=== PATIENT | male | born 1985 | race Two or more races ===

== ENCOUNTER 2021-05-05 05:51 | Emergency (ER) | payer SELFPAY ==
[~2021-05-05] VITALS: Ht 172.7 cm; Wt 72.6 kg
--- NOTE | 2021-05-05 05:55 | NUR ---
PT BIBRA C/O ALCOHOL INTOXICATION. PER EMS, FAMILY CALLED [id number] PT WAS IN THE BUSHES SCREAMING. MD AT BEDSIDE. PT REFUSING TO ANSWER QUESTIONS, ONLY REPEATS " FATHER, SON, AND [employer]". PT ATTACHED TO MONITOR AND POX. PT GIVEN BLANKET AND CALL LIGHT WITHIN REACH
[2021-05-05] MEDS ORDERED: HALOPERIDOL LACTATE INJ 5 MG/ML VIAL ONE (05:56)
[2021-05-05] MEDS ORDERED: LORAZEPAM INJ 2 MG/ML VIAL ONE (05:57)
--- NOTE | 2021-05-05 05:57 | NUR ---
VERBAL ORDER 5MG HALDOL AND 1MG ATIVAN IM
[2021-05-05] MEDS ORDERED: HALOPERIDOL LACTATE INJ 5 MG/ML VIAL IM ONE (06:00)
[2021-05-05] MEDS ORDERED: LORAZEPAM INJ 2 MG/ML VIAL IM ONE (06:00)
--- NOTE | 2021-05-05 06:19 | NUR ---
URINE COLLECTED AND SENT TO LAB
[2021-05-05 07:20] LABS: BASOPHILS % (AUTO) 0.4 % (0.0-2.0); EOSINOPHILS % (AUTO) 0.7 % (0.0-6.0); HEMATOCRIT 50 % (39-51); LYMPHOCYTES # (AUTO) 3.9 K/uL (0.8-4.8); LYMPHOCYTES % (AUTO) 35.3 % (20.0-44.0); MEAN CORPUSCULAR HGB CONC 34 g/dl (31.0-36.0); MEAN CORPUSCULAR VOLUME 85 fL (80-96); MONOCYTES # (AUTO) 0.6 K/uL (0.1-1.30); MONOCYTES % (AUTO) 5.5 % (2.0-12.0); NEUTROPHILS # (AUTO) 6.4 K/uL (1.8-8.9); NEUTROPHILS % (AUTO) 58.1 % (43.0-81.0); PLATELET COUNT (AUTO) 390 K/uL (150-450); RED BLOOD CELL COUNT(AUTO) 5.87 MIL/uL (4.5-6.0); WHITE BLOOD COUNT (AUTO) 11.1 K/uL (4.3-11.0)
[2021-05-05 08:07] LABS: BILIRUBIN,URINE NEGATIVE (NEGATIVE); COLOR,URINE YELLOW (YELLOW); LEUKOCYTE ESTERASE ,URINE NEGATIVE (NEGATIVE); NITRITE, URINE NEGATIVE (NEGATIVE); PH,URINE 5.5 (5.0-8.0); PROTEIN,URINE NEGATIVE (NEGATIVE); UGLUCOSE NEGATIVE (NEGATIVE); UROBILINOGEN,URINE 0.2 EU/dL (0.2)
[2021-05-05 10:10] LABS: BACTERIA,URINE Few /HPF (None Seen); SQUAMOUS EPITHELIAL CELL,UR Few /HPF (None Seen); WBC,URINE 0-2 /HPF (0-3)
--- NOTE | 2021-05-05 11:00 | NUR ---
pt is awake and alert. pt stated he wants to be discharge. aware.
--- NOTE | 2021-05-05 11:15 | NUR ---
pt able to walk to the restroom without assistance. aware.
--- NOTE | 2021-05-05 11:33 | NUR ---
Patient discharged to home in stable condition. Written and verbal after care instructions given. Patient verbalizes understanding of instruction.
[2021-05-05 11:34] VITALS: BP 119/68
[2021-05-05 13:52] LABS: ALBUMIN 4.5 g/dL (3.4-5.0); BILIRUBIN,DIRECT 0.1 mg/dL (0.0-0.2); BILIRUBIN,TOTAL 0.4 mg/dL (0.2-1.0); CREATININE 1.5 mg/dL (0.6-1.3); POTASSIUM 4.1 mmol/L (3.5-5.1); TOTAL PROTEIN, SERUM 8.9 g/dL (6.4-8.2)
[2021-05-05 15:35] LABS: CALCIUM, SERUM 9.1 mg/dL (8.5-10.1)
== END 2021-05-05 11:35 | disposition home or self-care (01) ==
LOC: ER 05:55
DX: F10.129 Alcohol abuse with intoxication, unspecified (principal); Y90.9 Presence of alcohol in blood, level not specified
CPT/HCPCS: 36415; 80048; 80076; 80143; 80307; 80320; 81001; 85025; 96372 ×2; 99284; J1630; J2060; G0480